=== PATIENT | male | born 1995 | race Caucasian/White ===

== ENCOUNTER 2017-10-10 18:17 | Emergency (ER) | payer BC, SELFPAY ==
[2017-10-10] MEDS ORDERED: Adacel (T-DAP) 0.5 ML VIAL ONE (18:37)
[2017-10-10] MEDS ORDERED: Bacitracin Zinc 1 Packet ONE (18:37)
[2017-10-10] MEDS ORDERED: Lidocaine 1% (PF) 30 ML VIAL ONE (19:31)
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
== END 2017-10-10 22:20 | disposition home or self-care (01) ==
LOC: ERS 18:17
DX: S06.9X9A Unspecified intracranial injury with loss of consciousness of unspecified duration, initial encounter (principal); S01.311A Laceration without foreign body of right ear, initial encounter; S01.01XA Laceration without foreign body of scalp, initial encounter; S40.011A Contusion of right shoulder, initial encounter; V18.4XXA Pedal cycle driver injured in noncollision transport accident in traffic accident, initial encounter
CPT/HCPCS: 12011; 70450; 72125; 90471; 90715; J2001

== ENCOUNTER 2017-10-18 07:08 | Emergency (ER) | payer BC | END 2017-10-18 08:19 | disposition home or self-care (01) | LOC: ERS 07:08 | DX: S01.311D Laceration without foreign body of right ear, subsequent encounter (principal) ==